=== PATIENT | female | born 1945 | race Caucasian/White ===

== ENCOUNTER 2017-11-05 10:52 | Outpatient (CLI) | payer OTHER | END 2017-11-05 20:18 | disposition home or self-care (01) | LOC: SMA 10:52 | PROVIDERS: ATTEND Family Medicine | DX: Z12.31 Encounter for screening mammogram for malignant neoplasm of breast (principal) | CPT/HCPCS: 77067 ==

== ENCOUNTER 2018-12-08 10:42 | Outpatient (CLI) | payer OTHER | END 2018-12-08 20:37 | disposition home or self-care (01) | LOC: SMA 10:42 | PROVIDERS: ATTEND Family Medicine | DX: Z12.31 Encounter for screening mammogram for malignant neoplasm of breast (principal) | CPT/HCPCS: 77067 ==